=== PATIENT | female | born 1950 | race Hispanic/Latino ===

== ENCOUNTER 2017-08-13 21:12 | Emergency (ER) | payer OTHER ==
[~2017-08-13 21:12] MED LIST: AMLO10TA2 PO; ASCO10007 PO; ASPI-1197 PO; ATOR10TA69 PO; CALC-916 PO; CHOL100044 PO; L.AC1CAP6 PO; MAGN250T39 PO; MORINGA PO; OMEG100014 PO; PROP325C5 PO; TRAZ-144 PO
[2017-08-13 22:14] LABS: APPEARANCE,URINE Clear (CLEAR); BASOPHILS % (AUTO) 0.5 % (0.0-5.0); BILIRUBIN,URINE Negative (NEGATIVE); COLOR,URINE Yellow (YELLOW); EOSINOPHILS % (AUTO) 3.6 % (0.0-8.0); GLUCOSE, URINE (UA) Negative (NEGATIVE); HEMATOCRIT 38.3 % (36-48); KETONES,URINE Negative (NEGATIVE); LEUKOCYTE ESTERASE ,URINE Moderate (NEGATIVE); LYMPHOCYTES % (AUTO) 36.1 % (21.0-51.0); MEAN CORPUSCULAR HEMOGLOBIN 32.1 pg (27.0-33.0); MEAN CORPUSCULAR HGB CONC 34.8 g/dL (32.0-36.0); MEAN CORPUSCULAR VOLUME 92.4 fL (79-99); MONOCYTES % (AUTO) 9.7 % (3.0-13.0); NEUTROPHILS % (AUTO) 50.1 % (40.0-77.0); NITRATE,URINE Negative (NEGATIVE); NUCLEATED RED BLOOD CELLS 0.1 % (0.0-0.19); OCCULT BLOOD,URINE Negative (NEGATIVE); PH,URINE 6.5 (5.0-8.0); PLATELET COUNT (AUTO) 260 K/uL (130-400); PROTEIN,URINE Negative (NEGATIVE); RED BLOOD CELL COUNT(AUTO) 4.15 MIL/uL (4.00-5.50); RED CELL DISTRIBUTION WIDTH 13.1 % (11.0-15.5); UROBILINOGEN,URINE 0.2 mg/dL (0.2-1.0); WHITE BLOOD COUNT (AUTO) 5.4 K/uL (4.8-10.8)
[2017-08-13 22:29] LABS: CREATININE 1.1 mg/dL (0.5-1.5); POTASSIUM 3.7 mmol/L (3.5-5.1)
[2017-08-13 22:42] LABS: ALBUMIN 3.6 g/dL (3.5-5.0); BILIRUBIN,TOTAL 0.6 mg/dL (0.2-1.0); CREATINE KINASE MB 0.8 ng/mL (0.5-3.6); TOTAL PROTEIN, SERUM 6.9 g/dL (6.0-8.3)
[2017-08-13 22:46] LABS: INR 1.02 (0.85-1.15); PARTIAL THROMBOPLASTIN TIME 28.7 SEC (26.3-35.5); PROTHROMBIN TIME 10.7 SEC (9.6-11.6); RBC,URINE 0-1 /HPF (0-1)
[2017-08-13 22:47] LABS: BACTERIA,URINE Rare /HPF (None Seen); SQUAMOUS EPITHELIAL CELL,UR 0-2 /LPF (0-2)
== END 2017-08-13 23:54 | disposition home or self-care (01) ==
LOC: EDH 21:12
DX: R07.89 Other chest pain (principal); I10 Essential (primary) hypertension; R11.0 Nausea; Z88.1 Allergy status to other antibiotic agents; Z88.6 Allergy status to analgesic agent; Z87.891 Personal history of nicotine dependence
CPT/HCPCS: 36415; 71045; 80053; 81001; 82550; 82553; 84484; 85025; 85610; 85730; 93005

== ENCOUNTER → 2018-08-29 | Outpatient (CLI) | payer OTHER ==
[~2018-08-29] MED LIST changes: -AMLO10TA2 PO; +AMLO10TA7 PO; -TRAZ-144 PO; +TRAZ-185 PO
== END | disposition home or self-care (01) ==
LOC: RAH 12:55
PROVIDERS: ATTEND Internal Medicine Cardiovascular Disease
DX: Z13.6 Encounter for screening for cardiovascular disorders (principal)
CPT/HCPCS: 75571

== ENCOUNTER 2025-02-04 02:47 | Observation (INO) | payer MEDICARE, OTHER ==
[2025-02-04] VITALS (7 sets, daily range): BP systolic 110–143; BP diastolic 60–78; PULSE 69–98; RESP 15–18; TEMP 97.7–98.2; O2SAT 96–98
[~2025-02-04] VITALS: Ht 167.6 cm; Wt 74.4 kg
[~2025-02-04 02:47] MED LIST changes: +AMLO-258 PO; -AMLO10TA7 PO; +ASCO10004 PO; -ASCO10007 PO; +PROP325C17 PO; -PROP325C5 PO
[2025-02-04 03:13] LABS: IMMATURE GRANULOCYTE ABSOLUTE 0.01 K/uL (0-1); NUCLEATED RED BLOOD CELLS 0.0 % (0.0-0.19); PLATELET COUNT (AUTO) 290 K/uL (130-400); RED BLOOD CELL COUNT(AUTO) 4.68 MIL/uL (4.00-5.50); RED CELL DISTRIBUTION WIDTH 13.1 % (11.0-15.5); WHITE BLOOD COUNT (AUTO) 6.1 K/uL (4.8-10.8)
--- NOTE | 2025-02-04 03:21 | HMCIMG ---
EXAM: CR Chest, 1 view CLINICAL HISTORY: Palpitation. COMPARISON: Chest radiograph dated 08/13/2017. FINDINGS: The lungs show no infiltrates or other acute findings. No pleural effusion or pneumothorax. The cardiomediastinal silhouette is within normal limits. No acute osseous abnormality. Mild levoscoliosis of the thoracic spine. IMPRESSION: No acute cardiopulmonary process is evident. No interval changes. /[place]
[2025-02-04 03:22] LABS: CREATININE 0.9 mg/dL (0.5-1.0); GLOMERULAR FILTR. RATE CALC 68.0 mL/min (>90); GLUCOSE,RANDOM 103.0 mg/dL (70-105); SODIUM SERUM 141.0 mmol/L (136-145); UREA NITROGEN, BLOOD 12.0 mg/dL (7-18)
--- NOTE | 2025-02-04 04:12 | ERN ---
General Chief Complaint: Palpitations Stated Complaint: C/O PALPITATIONS Time Seen by MD: 03:12 History of Present Illness Initial Comments 74-year-old female with a history of atrial fibrillation on propafenone and blood thinners. She has been experiencing increased palpitations for the last 18 hours and comes into the emergency room. No chest pain no fevers no chills no other systemic symptoms. Normal bowel movements normal urine Allergies: Coded Allergies: Sulfa (Sulfonamide Antibiotics) (Unverified Allergy, Mild, 04/18/16) trimethoprim (Unverified Allergy, Mild, 04/18/16) Home Meds Reported Medications Propafenone HCl (Propafenone HCl) 325 Mg Cap.er.12h, 325 MG PO BID, CAPSULE.DR 04/18/16 Amlodipine Besylate (Amlodipine Besylate) 10 Mg Tablet, 10 MG PO DAILY, TAB 04/18/16 Atorvastatin Calcium (Atorvastatin Calcium) 10 Mg Tablet, 10 MG PO HS, TAB 04/18/16 Aspirin (Aspirin) 81 Mg Tab.chew, 81 MG PO DAILY, TAB.CHEW 04/18/16 Magnesium Oxide (Magnesium Oxide) 250 Mg Tablet, 150 MG PO BID, TAB 04/18/16 Calcium Carbonate (Calcium Carbonate) 600 Mg Tablet, 300 MG PO BID, TAB 04/18/16 Cholecalciferol (Vitamin D3) (Vitamin D) 1,000 Unit Tablet, 1000 UNIT PO BID, TAB 04/18/16 Ascorbic Acid (Vitamin C) 1,000 Mg Tablet, 1000 MG PO DAILY, TAB 04/18/16 Rupert-3 Fatty Acids (Rupert-3) 1,000 Mg Capsule, 300 MG PO QODAY, CAP 04/18/16 L.acidoph & Paracasei,B.lactis (Probiotic) 1 Each Capsule, 1 EACH PO BID, CAP 04/18/16 [[place]] No Conflict Check, 5000 MG PO DAILY 04/18/16 Trazodone HCl (Trazodone HCl) 50 Mg Tablet, 25 MG PO HS, TAB 04/18/16 Past Medical History Past Medical History: A-Fib, High Cholesterol, Hypertension Past Surgical History: Other Surgical History Other: HERNIA REPAIR Constitutional: (-) chills, (-) diaphoresis, (-) fever, (-) malaise, (-) weakness, (-) other documentation EENTM: (-) eye pain, (-) blurred vision, (-) tearing, (-) double vision, (-) ear pain, (-) ear discharge, (-) nose pain, (-) nose congestion, (-) throat pain, (-) Throat swelling, (-) mouth pain, (-) tooth pain, (-) mouth swelling, (-) other documentation Respiratory: (-) cough, (-) orthopnea, (-) short of breath, (-) stridor, (-) wheezing, (-) other documentation Cardiovascular: (-) chest pain, (-) edema, (-) palpitations, (-) syncope, (-) dyspnea on exertion, (-) other documentation Gastrointestinal/Abdominal: (-) nausea, (-) vomiting, (-) diarrhea, (-) abdominal pain, (-) abdominal distention, (-) constipation, (-) rectal bleeding, (-) dark stool/melena, (-) other documentation Genitourinary: (-) vaginal discharge, (-) vaginal bleeding, (-) dysuria, (-) frequency, (-) hematuria, (-) pain, (-) other documentation Musculoskeletal: (-) Neck pain, (-) back pain, (-) Flank Pain, (-) joint pain, (-) joint swelling, (-) muscle pain, (-) muscle stiffness, (-) gout, (-) other documentation Physical Exam General Appearance: (+) mild distress Orientation: (+) alert, (+) oriented x 3 Head/Face Trauma: No Eye: bilateral eye normal inspection, bilateral eye PERRL, bilateral eye EOMI Ear, Nose, Throat: (+) hearing grossly normal, (+) normal ENT inspection, (+) moist mucous membraine Neck: (+) normal inspection, (+) supple, (+) full range of motion Respiratory: (+) chest non-tender, (+) lungs clear, (+) well ventilated Heart: (+) irregular, (+) tachycardia Vascular: (+) no edema, (+) normal peripheral pulse Gastrointestinal: (+) soft, (+) non-tender, (+) no organomegaly, (+) bowel sound present Results Laboratory and Microbiology Lab and Micro Result Laboratory Tests Test 02/04/25 03:07 02/04/25 04:49 White Blood Count 6.1 K/uL (4.8-10.8) Red Blood Count 4.68 MIL/uL (4.00-5.50) Hemoglobin 14.6 g/dL (12.0-16.0) Hematocrit 44.5 % (36-48) Mean Corpuscular Volume 95.1 fL (79-99) Mean Corpuscular Hemoglobin 31.2 pg (27.0-33.0) Mean Corpuscular Hemoglobin Concent 32.8 g/dL (32.0-36.0) Red Cell Distribution Width 13.1 % (11.0-15.5) Platelet Count 290 K/uL (130-400) Mean Platelet Volume 9.0 fL (7.5-10.5) Immature Granulocyte % (Auto) 0.2 % (0-1) Neutrophils (%) (Auto) 47.9 % (40.0-77.0) Lymphocytes (%) (Auto) 38.5 % (21.0-51.0) Monocytes (%) (Auto) 9.1 % (3.0-13.0) Eosinophils (%) (Auto) 3.8 % (0.0-8.0) Basophils (%) (Auto) 0.5 % (0.0-5.0) Neutrophils # (Auto) 2.9 K/uL (1.8-7.7) Lymphocytes # (Auto) 2.3 K/uL (1.0-4.8) Monocytes # (Auto) 0.6 K/uL (0.1-1.0) Eosinophils # (Auto) 0.23 K/uL (0.00-0.70) Basophils # (Auto) 0.03 K/uL (0.00-0.20) Absolute Immature Granulocyte (auto 0.01 K/uL (0-1) Nucleated Red Blood Cells 0.0 % (0.0-0.19) Sodium Level 141 mmol/L (136-145) Potassium Level 4.3 mmol/L (3.5-5.1) Chloride Level 105 mmol/L (101-111) Carbon Dioxide Level 34 mmol/L (21-32) H Blood Urea Nitrogen 12 mg/dL (7-18) Creatinine 0.9 mg/dL (0.5-1.0) Glomerular Filtration Rate Calc 68 mL/min (>90) Random Glucose 103 mg/dL (70-105) Total Calcium 9.5 mg/dL (8.5-10.1) Magnesium Level 2.10 mg/dL (1.80-2.40) Troponin I High Sensitivity 5 ng/L (4-50) B-Type Natriuretic Peptide 40 pg/mL (0-100) Urine Color COLORLESS (YELLOW) Urine Appearance CLEAR (CLEAR) Urine pH 7.5 (5.0-8.0) Urine Specific [place] 1.006 (1.001-1.031) Urine Protein NEGATIVE mg/dL (NEGATIVE) Urine Glucose (UA) NEGATIVE mg/dL (NEGATIVE) Urine Ketones NEGATIVE mg/dL (NEGATIVE) Urine Occult Blood NEGATIVE (NEGATIVE) Urine Nitrate NEGATIVE (NEGATIVE) Urine Bilirubin NEGATIVE mg/dL (NEGATIVE) Urine Urobilinogen 0.2 mg/dL (0.2-1.0) Urine Leukocyte Esterase 25 [place]/uL (NEGATIVE) H Urine RBC 2-5 /HPF (0-1) H Urine WBC 6-10 /HPF (0-1) H Urine Squamous Epithelial Cells RARE /HPF (0-2) Urine Bacteria None /HPF (None Seen) MDM MDM: Differential diagnosis: Electrolyte abnormalities, fluid overload, pain, medication failure, infection, pneumothorax, PE, Rationale: Tests considered and ordered secondary to shared decision making include: Previous outside records reviewed: Old ER visits. Risk of complication and/or morbidity or mortality of patient management: None Medications-Per medication reconciliation Need for hospitalization: Patient does meet criteria for hospitalization. Need for emergency major/minor surgery: No There are no social concerns with this patient. Prescription drug management Prescriptions will include symptomatic care Patient's prior external medical records from other ER visits were reviewed by me as indicated. Prior testing and results from previous visits were reviewed. Prior tests were taken into account with medical decision making and resource utilization, independent historian/historians were used to obtain complete medical history. I independently interpreted the test that were performed, results were reviewed by me and considered findings on radiology if ordered. Patient's heart rate has come down to normal with dose of diltiazem. Her chemistry panel is normal her CBC is normal she does have a mild UTI. I will discharge her home with a three day supply of antibiotics. ED Course Orders Procedure Category Date Status Time Cbc With Differential LAB 02/04/25 Complete 02:57 Basic Metabolic Panel LAB 02/04/25 Complete 02:57 Magnesium LAB 02/04/25 Complete 02:57 Troponin I High LAB 02/04/25 Complete Sensitivity 02:57 Chest 1vw RAD 02/04/25 Resulted 02:57 12 Lead Ekg Tracing- EKG 02/04/25 Logged Technical 02:57 B-Type Natriuretic LAB 02/04/25 Complete Peptide 02:57 Urinalysis Profile LAB 02/04/25 Complete 03:33 Diltiazem 25mg Inj PHA 02/04/25 Complete (Cardizem 25mg Inj) 04:00 Culture Urine CHARY 02/04/25 In Process 05:07 Current Medications Medications (Trade) Dose Ordered Sig/Kemi Route PRN Reason Start Time Stop Time Status Last Admin Dose Admin Diltiazem HCl (CARDIzem 25MG INJ) 20 mg ONCE ONCE IVP 02/04/25 04:00 02/04/25 04:01 DC 02/04/25 04:16 Vital Signs Date Time Temp Pulse Resp B/P (MAP) Pulse Ox O2 Delivery O2 Flow Rate FiO2 02/04/25 05:10 78 18 97 Room Air* 0 02/04/25 04:36 84 18 118/51 98 Room Air* 0 02/04/25 04:23 84 18 118/51 98 Room Air* 0 02/04/25 04:16 118 127/79 02/04/25 03:09 98.4 122 18 148/72 98 Room Air* 0 02/04/25 02:48 96.3 68 20 136/63 99 Room Air DX & DISP Disposition: Discharge Departure Impression: Primary Impression: Atrial fibrillation with tachycardic ventricular rate Additional Impression: UTI (urinary tract infection) Condition: Stable Scripts Cephalexin Monohydrate (Keflex) 500 Mg Cap 500 MG PO QID for 3 Days, #12 CAP Prov: STACEY FUNG MD 02/04/25 Additional Instructions: We were able to slow her heart rate down with a single dose of diltiazem. 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 You do have a mild urinary tract infection I have given you an antibiotic to take for three days. Please return if your heart rate increases dramatically again. Referrals: DEANN RODRIGUEZ (PCP) STACEY FUNG MD Feb 04, 2025 04:12
[2025-02-04 05:04] LABS: APPEARANCE,URINE CLEAR (CLEAR); GLUCOSE, URINE (UA) NEGATIVE (NEGATIVE); LEUKOCYTE ESTERASE ,URINE 25 Leu/uL (NEGATIVE); NITRATE,URINE NEGATIVE (NEGATIVE); OCCULT BLOOD,URINE NEGATIVE (NEGATIVE)
[2025-02-04 05:05] LABS: ADD UA MICROSCOPIC YES
[2025-02-04 05:06] LABS: SQUAMOUS EPITHELIAL CELL,UR RARE /HPF (0-2)
[2025-02-04] MEDS ORDERED: CEPH500B PO (05:20)
[2025-02-04] MEDS ORDERED: DILT30 PO (06:11)
--- NOTE | 2025-02-04 06:53 | EKG ---
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
[2025-02-04] MEDS: 0.9% NACL 500ML IV.SOLN 500 ML IV ONE (07:01)
--- NOTE | 2025-02-04 08:04 | HP ---
[facility] HISTORY AND PHYSICAL Date of Service: Feb 04, 2025 Time of Service: 08:04 HISTORY OF PRESENT ILLNESS: Patient is a 74 year old female with a past medical history of atrial fibrillation, hypertension, dyslipidemia, and osteoporosis who presents to the ED for symptoms of palpitations, lower extremity weakness, and chest discomfort. Patient states these symptoms are similar to what she has experienced in the past when she was hospitalized for atrial fibrillation. Her last documented admission for a-fib was in September of 2011. Currently she is managed on propafenone SR 325mg BID and Xarelto 20mg daily at home. Patient denies any sh ortness of breath, fevers, chills, dizziness, or recent illness. She is under the care of agile coach Dr. Jiménez. Patient was given two pushes of diltiazem with the second resulting in hypotension with BP of 90/50's. Diltiazem is currently being held. Patient was given a bolus of normal saline. Home medication of Xarelto has been resumed for this evening, patient states her last dose was yesterday evening. On assessment patient was alert and oriented and in no acute distress. Patient is hemodynamically stable with blood pressure in the 130/90's and HR of 80. Chest x-ray unremarkable. Labs unremarkable other than positive for leukoesterase and WBC in urine. Started on nitrofurantoin for UTI due to several drug allergies. Lisinopril 5mg can be resumed if blood pressure increases. Patient was admitted under hospitalist care for further evaluation/recommendation. Cardiology has been consulted, we will follow up with recommendations. REVIEW OF SYSTEMS CONSTITUTIONAL: Denies fevers, chills, or night sweats. No unintentional weight loss reported. NEUROLOGICAL: Denies amaurosis fugax, sensory deficit, vertigo/spinning sensation, gait abnormalities, or tremors. Admits to headaches and leg weakness that has resolved. ENT: No hearing loss, otalgia, otorrhea, rhinitis, rhinorrhea, hoarseness, or sore throat. CARDIOVASCULAR: Denies any exertional angina, dyspnea on exertion, orthopnea, paroxysmal nocturnal dyspnea, palpitations, life-threatening arrhythmias, claudication. PULMONARY: Denies any shortness of breath, cough, phlegm/sputum, hemoptysis, pleuritic chest pain. SLEEP: Denies morning headaches, daytime somnolence or napping. Denies difficulty falling asleep, staying asleep, waking from sleep. Denies knowledge of snoring. GASTROINTESTINAL: Denies any type of dysphagia to either liquids or solids. Denies nausea, vomiting, pyrosis, early satiety, abdominal pain, diarrhea, constipation, or changes in stool consistency or caliber. Denies coffee-ground emesis, hematemesis, hematochezia, or melanotic stools. GENITOURINARY: Denies frequency, urgency, nocturia, hematuria or incontinence (Storage/Irritative symptoms.) Low urinary stream, straining to void, urinary intermittency or hesitancy, splitting of the voiding stream, terminal dribbling. ENDOCRINOLOGIC: Denies polyuria, polydipsia, polyphagia or heat/cold intolerances. HEMATOLOGIC: Denies thrombophilia/previous clots, or coagulopathy/bleeding disorders. ONCOLOGIC: Denies personal history of malignancy. DERMATOLOGIC: Denies rashes or pruritus. PSYCHIATRIC: Denies any suicidal or homicidal ideation. Denies hallucinations. PAST MEDICAL HISTORY: Atrial fibrillation, hypertension, dyslipidemia, osteoporosis PAST SURGICAL HISTORY: , Umbilical hernia repair, Right ovary and cyst, Orthoscopic surgery of lateral and medial meniscus of right knee, left elbow repair, peripheral ir idotomy of left and right eye, colonoscopy 2009, nondisplaced fracture of right tuberosity of humerus, incarcerated ventral hernia repair, forearm/wrist cyst removal PAST SOCIAL HISTORY: Denies any smoking, alcohol use, or illegal substance use FAMILY HISTORY: Father with history of A-fib and heart attack Mother passed young, unknown history Coded Allergies: ibuprofen (Unverified Allergy, Intermediate, 02/04/25) Abdominal cramps, profused sweating, back pain, dysuria methylprednisolone (Unverified Allergy, Intermediate, 02/04/25) Diaphoresis, muscle weakness, triggered Atrial fibrillation Sulfa (Sulfonamide Antibiotics) (Unverified Allergy, Mild, 04/18/16) cefdinir (Verified Allergy, Mild, 02/04/25) Abdominal cramping, back pain hydrochlorothiazide (Unverified Allergy, Mild, 02/04/25) [place] hyoscyamine (Verified Allergy, Mild, RASH, 02/04/25) methenamine (Verified Allergy, Mild, RASH, 02/04/25) methylene blue (Verified Allergy, Mild, RASH, 02/04/25) sodium phosphate (Verified Allergy, Mild, RASH, 02/04/25) trimethoprim (Unverified Allergy, Mild, 04/18/16) valsartan (Unverified Allergy, Mild, ITCH[place], 02/04/25) PHYSICAL EXAM GENERAL APPEARANCE: The patient is awake, alert, and oriented, in no acute cardiopulmonary distress. NEUROLOGICAL: Cranial nerves II-XII grossly intact. Motor is 5/5 in bilateral upper and lower extremities proximal to distal. No sensory deficits. HEENT: Face is symmetric. Pupils are equal and reactive. Extraocular movements are intact. NECK: Supple. No JVD. No thyromegaly. No submental, submandibular, pre- /postauricular, occipital or supraclavicular lymphadenopathy. CHEST: Normal chest expansion. No Telemetry. LUNGS: Absence of any rales, rhonchi or any wheezing. CARDIOVASCULAR: Regular. S1 and S2 normal. No appreciable rubs, murmurs or gallops. ABDOMEN: Soft, nontender, and nondistended. There is no rebound, voluntary guarding, or rigidity. : Deferred. No [place]oya. EXTREMITIES: Non-edematous and not cyanotic. No clubbing. Good capillary refill. SKIN: No skin breakdown. Vital Sign (Last 24 Hours) 02/04/25 02/04/25 02/04/25 06:06 06:55 07:16 Temp 98.2 Pulse 90 Resp 18 B/P (MAP) 106/55 Pulse Ox 98 O2 Delivery Room Air* O2 Flow Rate 0 FiO2 21 LABS: Laboratory: Test 02/04/25 04:49 02/04/25 03:07 Range/Units Urine Color COLORLESS YELLOW Urine Appearance CLEAR CLEAR Urine pH 7.5 5.0-8.0 Urine Specific [place] 1.006 1.001-1.031 Urine Protein NEGATIVE NEGATIVE mg/dL Urine Glucose (UA) NEGATIVE NEGATIVE mg/dL Urine Ketones NEGATIVE NEGATIVE mg/dL Urine Occult Blood NEGATIVE NEGATIVE Urine Nitrate NEGATIVE NEGATIVE Urine Bilirubin NEGATIVE NEGATIVE mg/dL Urine Urobilinogen 0.2 0.2-1.0 mg/dL Urine Leukocyte Esterase 25 H NEGATIVE [place]/uL Urine RBC 2-5 H 0-1 /HPF Urine WBC 6-10 H 0-1 /HPF Urine Squamous Epithelial Cells RARE 0-2 /HPF Urine Bacteria None None Seen /HPF White Blood Count 6.1 4.8-10.8 K/uL Red Blood Count 4.68 4.00-5.50 MIL/uL Hemoglobin 14.6 12.0-16.0 g/dL Hematocrit 44.5 36-48 % Mean Corpuscular Volume 95.1 79-99 fL Mean Corpuscular Hemoglobin 31.2 27.0-33.0 pg Mean Corpuscular Hemoglobin Concent 32.8 32.0-36.0 g/dL Red Cell Distribution Width 13.1 11.0-15.5 % Platelet Count 290 130-400 K/uL Mean Platelet Volume 9.0 7.5-10.5 fL Immature Granulocyte % (Auto) 0.2 0-1 % Neutrophils (%) (Auto) 47.9 40.0-77.0 % Lymphocytes (%) (Auto) 38.5 21.0-51.0 % Monocytes (%) (Auto) 9.1 3.0-13.0 % Eosinophils (%) (Auto) 3.8 0.0-8.0 % Basophils (%) (Auto) 0.5 0.0-5.0 % Neutrophils # (Auto) 2.9 1.8-7.7 K/uL Lymphocytes # (Auto) 2.3 1.0-4.8 K/uL Monocytes # (Auto) 0.6 0.1-1.0 K/uL Eosinophils # (Auto) 0.23 0.00-0.70 K/uL Basophils # (Auto) 0.03 0.00-0.20 K/uL Absolute Immature Granulocyte (auto 0.01 0-1 K/uL Nucleated Red Blood Cells 0.0 0.0-0.19 % Sodium Level 141 136-145 mmol/L Potassium Level 4.3 3.5-5.1 mmol/L Chloride Level 105 101-111 mmol/L Carbon Dioxide Level 34 H 21-32 mmol/L Blood Urea Nitrogen 12 7-18 mg/dL Creatinine 0.9 0.5-1.0 mg/dL Glomerular Filtration Rate Calc 68 >90 mL/min Random Glucose 103 70-105 mg/dL Total Calcium 9.5 8.5-10.1 mg/dL Magnesium Level 2.10 1.80-2.40 mg/dL Troponin I High Sensitivity 5 4-50 ng/L B-Type Natriuretic Peptide 40 0-100 pg/mL Current Medications Medications (Trade) Dose Ordered Sig/Kemi Route PRN Reason Start Time Stop Time Status Last Admin Dose Admin Ascorbic Acid (Vitamin C 500mg Tab) 1,000 mg DAILY PO 02/04/25 09:00 03/06/25 08:59 Atorvastatin Calcium (LIPItor 10MG) 10 mg HS PO 02/04/25 21:00 03/06/25 20:59 Cephalexin (Keflex 500 MG CAPS) 500 mg QID PO 02/04/25 09:00 02/04/25 07:58 DC Home Med (Home Medication) (Cholecalciferol (Vitamin D3) (Vitamin... BID PO 02/04/25 09:00 03/06/25 08:59 Home Med (Home Medication) (L.acidoph & Paracasei,B.lactis (Probiotic... BID PO 02/04/25 09:00 03/06/25 08:59 DIAGNOSTICS / RADIOLOGY: PATIENT: NACHO SOTELO MR#: [id number] : 1950 SEX: F AGE: 74 LOCATION: [facility] ORDER 7 STATUS: [facility] REPORT#: [id number] SERVICE 6 REASON: PALPITATIONS ORDERING PHYSICIAN: STACEY FUNG MD PROCEDURE: CXR1VW - CHEST 1VW EXAM: CR Chest, 1 view CLINICAL HISTORY: Palpitation. COMPARISON: Chest radiograph dated 08/13/2017. FINDINGS: The lungs show no infiltrates or other acute findings. No pleural effusion or pneumothorax. The cardiomediastinal silhouette is within normal limits. No acute osseous abnormality. Mild levoscoliosis of the thoracic spine. IMPRESSION: No acute cardiopulmonary process is evident. No interval changes. /[place] DICTATED BY: MATTHEW ALFREDO Jr., MD DATE: 02/04/25419 ELECTRONICALLY SIGNED BY: MATTHEW ALFREDO Jr., MD DATE: 02/04/25419 ASSESSMENT: Atrial fibrillation POA Urinary tract infection POA Hypertension Dyslipidemia Osteoporosis PLAN: Atrial fibrillation POA Hypertension Admit to med surg with tele Continue Xarelto 20mg HS daily Diltiazem 25mg held due to hypotensive episode, resume as needed Diltazem 5mg IV PRN if HR >120 Lisinopril held due to hypotensive episode, resume as needed Cardiology consult placed, pending recommendations Urinary tract infection POA Follow cultures, deescalate antibiotics as soon as possible Rocephin 1g IV discontinued due to patient reported allergy Started on nitrofurantoin 100mg BID daily Dyslipidemia, Osteoporosis Continue atorvastatin Continue alendronate Continue GI and DVT prophylaxis Maintain fall precautions Reconcile home medications when available ATTESTATION BY PHYSICIAN I have seen and examined the patient. I reviewed the documentation, medical decision making, and treatment plan as noted by the resident provider above. I agree with the findings and plan of care. Robin Interiano MD, NEHA MD Feb 04, 2025 08:04
[2025-02-04] MEDS: ASCORBIC ACID 500 MG TAB PO SCH (08:50)
[2025-02-04] MEDS ORDERED: RIVA20TA PO (09:17)
[2025-02-04] MEDS ORDERED: LISI5TAB21 PO (09:17)
[2025-02-04] MEDS ORDERED: ALEN70TA80 PO (09:17)
--- NOTE | 2025-02-04 09:48 | NUR ---
REPORT GIVEN TO NURSE WILLIS.
--- NOTE | 2025-02-04 09:53 | NUR ---
PATIENT TRANSPORTED TO THIRD FLOOR. ROOM 327. PATIENT TOOK ALL BELONGINGS WITH HER AT BEDSIDE.
[2025-02-04] MEDS: CHOLECALCIFEROL 1000 UNIT PO SCH (10:05)
[2025-02-04] MEDS: (L.acidoph & Paracasei,B.lactis (Probiotic) 1 EACH) PO SCH (10:05)
[2025-02-04] MEDS ORDERED: FAMOTIDINE 20MG VIAL IV PRN (11:00)
--- NOTE | 2025-02-04 11:09 | CONS ---
[facility] CARDIOLOGY CONSULTATION REPORT Cardiology consultation note dictated for Sana Proctor MD Primary reel film inspector: Igor Jiménez MD Date Patient Seen: Feb 04, 2025 Requesting Physician: Mary Sotelo MD Reason for Consultation: Atrial fibrillation with rapid ventricular response History of Present Illness: This is a 74 year female with a past medical history of hypertension, d yslipidemia, paroxysmal atrial fibrillation on chronic anticoagulation with Xarelto, 2D echo on 04/12/2010 with an EF of 65% with no significant valvular pathology, and nondiagnostic Cardiolite stress test with coronary calcium score of 47 in 2019 who presented to the ED with complaints of palpitations. She was found to have a UTI. Cardiology has been consulted for atrial fibrillation with rapid ventricular response. The patient woke up this morning around 2:00 a.m. to use the bathroom and noticed she had an irregular heartbeat and chest tightness which prompted her to seek medical attention. There were no other accompanying symptoms. EKG on admission demonstrated atrial fibrillation with a heart rate of 119 bpm. The patient received diltiazem 20 mg IV x2 inducing hypotension. She was given a 500cc NS bolus with improvement in blood pressure. She admits compliance with home medications of Propafenone ER 325 mg every 12 hours and Xarelto 20 mg daily with dinner. Current telemetry demonstrating atrial fibrillation with a heart rate of 110 bpm. Potassium 4.3. Magnesium 2.1. Troponin 5. BNP 40. Chest x- ray was benign. Past Medical History: As per HPI and summarized below Past Surgical History: C-sections x2 Right ovarian oophorectomy Umbilical hernia Right knee, lateral and medial meniscus repair Right arm cyst removal Family History: Noncontributory Social History: The patient lives with with her . Habits: The patient denies alcohol, tobacco, or illicit drug use. Home Meds: Alendronate sodium 70 mg weekly Propafenone paranoid 25 mg b.i.d. Lisinopril 5 mg daily Xarelto 20 mg daily with food Amlodipine 10 mg daily Ascorbic acid 1000 mg daily Aspirin 81 mg daily Atorvastatin 10 mg nightly Calcium carbonate 200 mg b.i.d. Vitamin-D 1000 units b.i.d. Probiotic b.i.d. Magnesium oxide 250 mg b.i.d. [place] 3 fatty acids 300 mg every other day Monitoring of 5000 mg daily Trazodone 25 mg q.h.s. Current Meds: Medications Dose Ordered Sig/Kemi Start Time Stop Time Status Last Admin Atorvastatin Calcium 10 mg HS 02/04/25 21:00 03/06/25 20:59 Ascorbic Acid 1,000 mg DAILY 02/04/25 09:00 03/06/25 08:59 02/04/25 08:50 Home Med (Cholecalciferol (Vitamin D3) (Vitamin... BID 02/04/25 09:00 03/06/25 08:59 Home Med (L.acidoph & Paracasei,B.lactis (Probiotic... BID 02/04/25 09:00 03/06/25 08:59 Rivaroxaban 20 mg HS 02/04/25 21:00 03/06/25 20:59 Nitrofurantoin Macrocrystals 100 mg BID 02/04/25 21:00 02/09/25 00:00 Lisinopril 5 mg DAILY 02/05/25 09:00 03/07/25 08:59 Alendronate Sodium 70 mg QWEEK@0630 02/11/25 06:30 03/13/25 06:29 Review of Systems: CONST: No fever, fatigue, or weight changes. EYES: No recent vision problems. ENT: No congestion, ear pain, or sore throat. C/V: Admits to an irregular heartbeat and chest tightness RESP: No cough, congestion, wheezing or shortness of breath. GI: No abdominal pain, nausea, vomiting, constipation, or diarrhea. : No incontinence or dysuria. SKIN: No rash. NEURO: No headache, focal numbness or weakness, dizziness, or seizures. PSYCH: No depression or anxiety. HEME: No abnormal bruising or bleeding. LYMPH: No swollen glands. Physical Examination: GENERAL: No acute distress. HEAD: Normal with no signs of head trauma. EYES: PERRLA, EOMI, conjunctiva and sclera normal. ENT: Hearing grossly intact, normal oropharynx. NECK: Supple without JVD. There is no tenderness, lymphadenopathy, or masses. No thyromegaly. Normal carotid upstrokes without bruits. LUNGS: Clear breath sounds bilaterally. No wheezes, or rhonchi. HEART: Irregularly irregular rate and rhythm. Normal S1 and S2 without murmurs, gallop or rub. VASC: Peripheral pulses +2 bilaterally. ABD: Bowel sounds normal, soft, nontender, no masses, no organomegaly. No audible bruits. : Not examined LYMPH: No lymphadenopathy noted. EXT: No clubbing, cyanosis or edema. SKIN: No rashes or lesions noted. NEURO: Awake, alert, and oriented x3. No focal sensory or strength deficits noted. Vital Signs (last 8hr) Date Time Temp Pulse Resp B/P (MAP) Pulse Ox O2 Delivery O2 Flow Rate FiO2 02/04/25 10:23 97.7 98 18 143/73 98 Room Air 02/04/25 09:54 97.9 92 17 133/66 98 Room Air 02/04/25 08:47 97.9 69 15 113/65 97 Room Air 02/04/25 07:16 90 106/55 02/04/25 06:55 78 18 92/58 98 Room Air* 0 02/04/25 06:42 72 18 92/64 96 Room Air* 0 02/04/25 06:06 98.2 90 18 102/63 99 Room Air* 0 02/04/25 05:10 78 18 97 Room Air* 0 02/04/25 04:36 84 18 118/51 98 Room Air* 0 02/04/25 04:23 84 18 118/51 98 Room Air* 0 02/04/25 04:16 118 127/79 02/04/25 03:09 98.4 122 18 148/72 98 Room Air* 0 21 Laboratory: Hematology Labs: Test 02/04/25 03:07 Range/Units White Blood Count 6.1 4.8-10.8 K/uL Red Blood Count 4.68 4.00-5.50 MIL/uL Hemoglobin 14.6 12.0-16.0 g/dL Hematocrit 44.5 36-48 % Mean Corpuscular Volume 95.1 79-99 fL Mean Corpuscular Hemoglobin 31.2 27.0-33.0 pg Mean Corpuscular Hemoglobin Concent 32.8 32.0-36.0 g/dL Red Cell Distribution Width 13.1 11.0-15.5 % Platelet Count 290 130-400 K/uL Mean Platelet Volume 9.0 7.5-10.5 fL Immature Granulocyte % (Auto) 0.2 0-1 % Neutrophils (%) (Auto) 47.9 40.0-77.0 % Lymphocytes (%) (Auto) 38.5 21.0-51.0 % Monocytes (%) (Auto) 9.1 3.0-13.0 % Eosinophils (%) (Auto) 3.8 0.0-8.0 % Basophils (%) (Auto) 0.5 0.0-5.0 % Neutrophils # (Auto) 2.9 1.8-7.7 K/uL Lymphocytes # (Auto) 2.3 1.0-4.8 K/uL Monocytes # (Auto) 0.6 0.1-1.0 K/uL Eosinophils # (Auto) 0.23 0.00-0.70 K/uL Basophils # (Auto) 0.03 0.00-0.20 K/uL Absolute Immature Granulocyte (auto 0.01 0-1 K/uL Nucleated Red Blood Cells 0.0 0.0-0.19 % Chemistry Labs: Test 02/04/25 03:07 Range/Units Sodium Level 141 136-145 mmol/L Potassium Level 4.3 3.5-5.1 mmol/L Chloride Level 105 101-111 mmol/L Carbon Dioxide Level 34 H 21-32 mmol/L Blood Urea Nitrogen 12 7-18 mg/dL Creatinine 0.9 0.5-1.0 mg/dL Glomerular Filtration Rate Calc 68 >90 mL/min Random Glucose 103 70-105 mg/dL Total Calcium 9.5 8.5-10.1 mg/dL Magnesium Level 2.10 1.80-2.40 mg/dL Troponin I High Sensitivity 5 4-50 ng/L B-Type Natriuretic Peptide 40 0-100 pg/mL Diagnostics / Radiology: Impression and Plan: Atrial fibrillation with rapid ventricular response UTI On chronic anticoagulation with Xarelto Hypertension Dyslipidemia Nondiagnostic Cardiolite stress test with coronary calcium score 47 in 2019 Atrial fibrillation with rapid ventricular response Telemetry currently demonstrating atrial fibrillation with a heart rate of 110bpm -Start metoprolol tartrate 25 mg b.i.d. -Continue Xarelto 20 mg daily with dinner and use home medication of Propafenone ER 325 mg every 12 hours JOSE ESCOBEDO [employer] Feb 04, 2025 11:09
[2025-02-04] MEDS: 0.9%NACL 1000ML 1,000 ML IV SCH (11:32)
[2025-02-04] MEDS: PROPAFENONE HCL 325 MG PO SCH (13:11)
[2025-02-04] MEDS ORDERED: PoTASSium chl 10% ELIXIR 20MEQ 20 MEQ/15 ML UDCUP PO PRN (14:00)
[2025-02-04] MEDS ORDERED: MAGNESIUM 2GM PREMIX 50ML 50 ML IV PRN (14:00)
[2025-02-04] MEDS ORDERED: PoTASSium chloRIDE 20MEQ ER 20 MEQ ERTAB PO PRN (14:00)
[2025-02-04] MEDS: FAMOTIDINE 20MG VIAL IV SCH (20:24)
[2025-02-04] MEDS: RIVAROXABAN 20 MG TABLET PO SCH (20:25)
[2025-02-04] MEDS: NITROFURANTOIN MONOHYD/M-CRYST 100 MG CAPSULE PO SCH (20:25)
[2025-02-05] VITALS: BP 118/76; PULSE 90; RESP 18; TEMP 97.4
[2025-02-05 04:00] VITALS: BP 113/67; PULSE 90; RESP 17; TEMP 97.6
[2025-02-05 04:30] LABS: IMMATURE GRANULOCYTE ABSOLUTE 0.01 K/uL (0-1); NUCLEATED RED BLOOD CELLS 0.0 % (0.0-0.19); PLATELET COUNT (AUTO) 248 K/uL (130-400); RED BLOOD CELL COUNT(AUTO) 4.12 MIL/uL (4.00-5.50); RED CELL DISTRIBUTION WIDTH 13.0 % (11.0-15.5); WHITE BLOOD COUNT (AUTO) 5.5 K/uL (4.8-10.8)
[2025-02-05 04:47] LABS: ASPARTATE AMINOTRANSFERASE 19.0 U/L (10-37); CREATININE 0.8 mg/dL (0.5-1.0); GLOMERULAR FILTR. RATE CALC 78.0 mL/min (>90); GLUCOSE,RANDOM 89.0 mg/dL (70-105); SODIUM SERUM 141.0 mmol/L (136-145); TOTAL PROTEIN, SERUM 5.9 g/dL (6.0-8.3); UREA NITROGEN, BLOOD 14.0 mg/dL (7-18)
[2025-02-05 08:00] VITALS: BP 126/79; PULSE 65; RESP 17; TEMP 97.5
[2025-02-05 08:50] VITALS: O2SAT 99
[2025-02-05] MEDS: LISINOPRIL 5 MG TABLET PO SCH (08:50)
--- NOTE | 2025-02-05 09:48 | NUR ---
DCP: HOME Pt currently lives with her sps Willian Tim [phone]. Pt does not have insecurities with food, care home, and/or utilities. Pt does use a walker outside her home. Pt does not have a provider or home health services at this time. PCP is Dr. Leighton Parker and uses [facility] for any RX needs. At [place] pt will want to go home and family can assist with transportation. Addendum: 02/05/25 at 0950 by CASEY BILLINGS SS Amended: Links added.
[2025-02-05 12:00] VITALS: BP 144/79; PULSE 64; RESP 18; TEMP 97.8
--- NOTE | 2025-02-05 12:20 | PN ---
[facility] CARDIOLOGY PROGRESS NOTE Cardiology progress note dictated for Kaushik Tinoco MD Date Patient Seen: Feb 05, 2025 Interval History: The patient converted to NSR, hr in the 60's now. Physical Examination: GENERAL: No acute distress. HEAD: Normal with no signs of head trauma. EYES: PERRLA, EOMI, conjunctiva and sclera normal. NECK: Supple without JVD. There is no tenderness, lymphadenopathy, or masses. No thyromegaly. Normal carotid upstrokes without bruits. LUNGS: Clear breath sounds bilaterally. No wheezes, or rhonchi. HEART: Normal rate and rhythm. Normal S1 and S2 without murmurs, gallop or rub. VASC: Peripheral pulses +2 bilaterally. EXT: No clubbing, cyanosis or edema. NEURO: Awake, alert, and oriented x3. No focal neurological deficits noted. Laboratory: Hematology Labs: Test 02/05/25 04:07 Range/Units White Blood Count 5.5 4.8-10.8 K/uL Red Blood Count 4.12 4.00-5.50 MIL/uL Hemoglobin 13.0 12.0-16.0 g/dL Hematocrit 39.4 36-48 % Mean Corpuscular Volume 95.6 79-99 fL Mean Corpuscular Hemoglobin 31.6 27.0-33.0 pg Mean Corpuscular Hemoglobin Concent 33.0 32.0-36.0 g/dL Red Cell Distribution Width 13.0 11.0-15.5 % Platelet Count 248 130-400 K/uL Mean Platelet Volume 9.1 7.5-10.5 fL Immature Granulocyte % (Auto) 0.2 0-1 % Neutrophils (%) (Auto) 42.2 40.0-77.0 % Lymphocytes (%) (Auto) 43.2 21.0-51.0 % Monocytes (%) (Auto) 9.1 3.0-13.0 % Eosinophils (%) (Auto) 4.4 0.0-8.0 % Basophils (%) (Auto) 0.9 0.0-5.0 % Neutrophils # (Auto) 2.3 1.8-7.7 K/uL Lymphocytes # (Auto) 2.4 1.0-4.8 K/uL Monocytes # (Auto) 0.5 0.1-1.0 K/uL Eosinophils # (Auto) 0.24 0.00-0.70 K/uL Basophils # (Auto) 0.05 0.00-0.20 K/uL Absolute Immature Granulocyte (auto 0.01 0-1 K/uL Nucleated Red Blood Cells 0.0 0.0-0.19 % Chemistry Labs: Test 02/05/25 04:07 02/04/25 03:07 Range/Units Sodium Level 141 136-145 mmol/L Potassium Level 4.0 3.5-5.1 mmol/L Chloride Level 107 101-111 mmol/L Carbon Dioxide Level 28 21-32 mmol/L Blood Urea Nitrogen 14 7-18 mg/dL Creatinine 0.8 0.5-1.0 mg/dL Glomerular Filtration Rate Calc 78 >90 mL/min Random Glucose 89 70-105 mg/dL Total Calcium 8.5 8.5-10.1 mg/dL Total Bilirubin 0.4 0.2-1.0 mg/dL Aspartate Amino Transf (AST/SGOT) 19 10-37 U/L Alanine Aminotransferase (ALT/SGPT) 19 12-78 U/L Alkaline Phosphatase 50 50-136 U/L Total Protein 5.9 L 6.0-8.3 g/dL Albumin 2.9 L 3.5-5.0 g/dL Thyroxine (T4) 8.4 4.7-13.3 ug/dL Magnesium Level 2.10 1.80-2.40 mg/dL Troponin I High Sensitivity 5 4-50 ng/L B-Type Natriuretic Peptide 40 0-100 pg/mL Thyroid Stimulating Hormone (TSH) 5.14 H 0.36-3.74 uIU/mL Diagnostics / Radiology: Impression and Plan: Atrial fibrillation with rapid ventricular response UTI On chronic anticoagulation with Xarelto Hypertension Dyslipidemia Nondiagnostic Cardiolite stress test with coronary calcium score 47 in 2019 Atrial fibrillation with rapid ventricular response Telemetry currently demonstrating normal sinus rhythm with a heart rate in the 60s -The patient is cleared for discharge on metoprolol tartrate 25 mg bid, propafenone ER 325 mg every 12 hours, and Xarelto 20 mg daily with dinner -Follow-up with Dr. Igor Jiménez in 7 to 10 days after discharge JOSE ESCOBEDO [facility] Feb 05, 2025 12:20
[2025-02-05] MEDS ORDERED: MACR100 PO (14:17)
[2025-02-05] MEDS ORDERED: METO25TA6 PO (14:17)
--- NOTE | 2025-02-05 15:27 | NUR ---
DISCHARGE PIV DC'D DISCHARGE INSTRUCTIONS GIVEN TO PATIENT PATIENT IS AWARE OF FOLLOW UP APPOINTMENT WITH [employer] [employer] PCP OFFICE TO CALL WITH FOLLOW UP APPOINTMENT PATIENT IS AWARE OF MEDICATION CHANGES AND NEW PRESCRIPTIONS PATIENTS HOME MEDICATIONS WERE RETURNED FROM THE [facility]MN[facility] TO THE PATIENT ALL QUESTIONS ANSWERED PRIOR TO DISCHARGE
--- NOTE | 2025-02-05 16:15 | DS ---
Discharge Summary Hospital Course Summary: Patient information: Name: Nacho Tim Date of : 1950 Admission date: 02/04/2025 Discharge date: 02/05/2025 Attending physician: Dr. Robin Interiano Admitting diagnosis: Atrial fibrillation POA Urinary tract infection POA Hypertension, POA Dyslipidemia, POA Osteoporosis, POA Discharge diagnosis: Atrial fibrillation POA Urinary tract infection POA Hypertension Dyslipidemia Osteoporosis Course in hospital: She is a 74-year-old female with past medical history of atrial fibrillation, hypertension, dyslipidemia, and osteoporosis presented to the ED for symptoms of palpitations. lower extremity weakness and chest discomfort. She states these symptoms are similar to what she has experienced in the past when she was hospitalized for atrial fibrillation. She was on propafenone SR 325mg BID and Xarelto 20mg daily at home. In the ED had a EKG showed that she is having atrial fibrillation with rapid ventricular response and her heart rate is 119 and she was given 2 pushes of diltiazem with the 2nd resulting in hypotension with BP of 90/50s. So diltiazem was held. She was given a bolus of normal saline. After these on assessment patient was alert and oriented and in no acute distress. Patient is hemodynamically stable with blood pressure in the 130/90's and HR of 80. Chest x-ray unremarkable. Labs unremarkable other than positive for leukoesterase and WBC in urine. Started on nitrofurantoin for UTI due to several drug allergies. She was admitted to the hospital for further management. Cardiology was consulted and the started metoprolol tartrate and continue Xarelto 20mg, propafenone ER 325 mg every 12 hours. On 02/05/2025, she has no symptoms and EKG showed that she is in sinus rhythm. She is cleared for cardiology for discharge and so we are discharging her based on cardiac recommendations on Xarelto 20mg, metoprolol tartrate 25mg, propafenone ER 325mg. Procedures performed: Chest x-ray Medications on discharge: 1) Metoprolol Tartrate 25mg 1 tab PO BID. 2) Nitrofurantoin 100mg 1 Cap PO BID 3) Alendronate 70mg 1 Tab PO QWEEK 4) Ascorbic acid 1000mg 1 tab PO daily 5) Aspirin 81mg tab. chew PO daily. 6)Atorvastatin 10mg PO HS 7) Calcium carbonate 600mg tab 300mg PO BID 8) Cholecalciferol 1000 unit 1 tab PO BID 9) L.acidoph and paracasei, B.lactis 1each PO BID 10) Lisinopril 5mg 1 tab PO Daily 11) Magnesium oxide 250mg 150 mg PO BID 12) Moringa 5000mg PO Daily 13) Sloan 3 fatty acids 1000mg 300mg PO QODAY 14) Propafenone 325mg ER 1 tab PO BID 15) Rivaroxaban 20mg 1 tab PO Daily 16) Trazodone 50mg 25mg PO HS. Discharge instructions: 1) Follow up with primary care physician within 2 to 3 days after discharge. 2) Follow up with cardiology in 7 to 10 days after discharge. 3) Continue all medications as prescribed. Do not discontinue or change doses without consulting your PCP. 4) Gradually resume normal activities as tolerated. 5) Continue a balanced diet. 6) Seek immediate medical attention if you experience chest pain, SOB, or severe headache. 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 [place] [id number] [facility] CARDIOLOGY CONSULTATION REPORT Cardiology consultation note dictated for Sana Proctor MD Primary engraver hand soft metals: Igor Jiménez MD Date Patient Seen: Feb 04, 2025 Requesting Physician: Mary Sotelo MD Reason for Consultation: Atrial fibrillation with rapid ventricular response History of Present Illness: This is a 74 year female with a past medical history of hypertension, dyslipidemia, paroxysmal atrial fibrillation on chronic anticoagulation with Xarelto, 2D echo on 04/12/2010 with an EF of 65% with no significant valvular pathology, and nondiagnostic Cardiolite stress test with coronary calcium score of 47 in 2019 who presented to the ED with complaints of palpitations. She was found to have a UTI. Cardiology has been consulted for atrial fibrillation with rapid ventricular response. The patient woke up this morning around 2:00 a.m. to use the bathroom and noticed she had an irregular heartbeat and chest tightness which prompted her to seek medical attention. There were no other accompanying symptoms. EKG on admission demonstrated atrial fibrillation with a heart rate of 119 bpm. The patient received diltiazem 20 mg IV x2 inducing hypotension. She was given a 500cc NS bolus with improvement in blood pressure. She admits compliance with home medications of Propafenone ER 325 mg every 12 hours and Xarelto 20 mg daily with dinner. Current telemetry demonstrating atrial fibrillation with a heart rate of 110 bpm. Potassium 4.3. Magnesium 2.1. Troponin 5. BNP 40. Chest x- ray was benign. Past Medical History: As per HPI and summarized below Past Surgical History: C-sections x2 Right ovarian oophorectomy Umbilical hernia Right knee, lateral and medial meniscus repair Right arm cyst removal Family History: Noncontributory Social History: The patient lives with with her . Habits: The patient denies alcohol, tobacco, or illicit drug use. Home Meds: Alendronate sodium 70 mg weekly Propafenone paranoid 25 mg b.i.d. Lisinopril 5 mg daily Xarelto 20 mg daily with food Amlodipine 10 mg daily Ascorbic acid 1000 mg daily Aspirin 81 mg daily Atorvastatin 10 mg nightly Calcium carbonate 200 mg b.i.d. Vitamin-D 1000 units b.i.d. Probiotic b.i.d. Magnesium oxide 250 mg b.i.d. Sloan 3 fatty acids 300 mg every other day Monitoring of 5000 mg daily Trazodone 25 mg q.h.s. Current Meds: Medications Dose Ordered Sig/Kemi Start Time Stop Time Status Last Admin Atorvastatin Calcium 10 mg HS 02/04/25 21:00 03/06/25 20:59 Ascorbic Acid 1,000 mg DAILY 02/04/25 09:00 03/06/25 08:59 02/04/25 08:50 Home Med (Cholecalciferol (Vitamin D3) (Vitamin... BID 02/04/25 09:00 03/06/25 08:59 Home Med (L.acidoph & Paracasei,B.lactis (Probiotic... BID 02/04/25 09:00 03/06/25 08:59 Rivaroxaban 20 mg HS 02/04/25 21:00 03/06/25 20:59 Nitrofurantoin Macrocrystals 100 mg BID 02/04/25 21:00 02/09/25 00:00 Lisinopril 5 mg DAILY 02/05/25 09:00 8/29/25 08:59 Alendronate Sodium 70 mg QWEEK@0630 02/11/25 06:30 03/13/25 06:29 Review of Systems: CONST: No fever, fatigue, or weight changes. EYES: No recent vision problems. ENT: No congestion, ear pain, or sore throat. C/V: Admits to an irregular heartbeat and chest tightness RESP: No cough, congestion, wheezing or shortness of breath. GI: No abdominal pain, nausea, vomiting, constipation, or diarrhea. : No incontinence or dysuria. SKIN: No rash. NEURO: No headache, focal numbness or weakness, dizziness, or seizures. PSYCH: No depression or anxiety. HEME: No abnormal bruising or bleeding. LYMPH: No swollen glands. Physical Examination: GENERAL: No acute distress. HEAD: Normal with no signs of head trauma. EYES: PERRLA, EOMI, conjunctiva and sclera normal. ENT: Hearing grossly intact, normal oropharynx. NECK: Supple without JVD. There is no tenderness, lymphadenopathy, or masses. No thyromegaly. Normal carotid upstrokes without bruits. LUNGS: Clear breath sounds bilaterally. No wheezes, or rhonchi. HEART: Irregularly irregular rate and rhythm. Normal S1 and S2 without murmurs, gallop or rub. VASC: Peripheral pulses +2 bilaterally. ABD: Bowel sounds normal, soft, nontender, no masses, no organomegaly. No audible bruits. : Not examined LYMPH: No lymphadenopathy noted. EXT: No clubbing, cyanosis or edema. SKIN: No rashes or lesions noted. NEURO: Awake, alert, and oriented x3. No focal sensory or strength deficits noted. Vital Signs (last 8hr) Date Time Temp Pulse Resp B/P (MAP) Pulse Ox O2 Delivery O2 Flow Rate FiO2 02/04/25 10:23 97.7 98 18 143/73 98 Room Air 02/04/25 09:54 97.9 92 17 133/66 98 Room Air 02/04/25 08:47 97.9 69 15 113/65 97 Room Air 02/04/25 07:16 90 106/55 02/04/25 06:55 78 18 92/58 98 Room Air* 0 21 02/04/25 06:42 72 18 92/64 96 Room Air* 0 21 29/25 06:06 98.2 90 18 102/63 99 Room Air* 0 02/04/25 05:10 78 18 97 Room Air* 0 02/04/25 04:36 84 18 118/51 98 Room Air* 0 02/04/25 04:23 84 18 118/51 98 Room Air* 0 02/04/25 04:16 118 127/79 02/04/25 03:09 98.4 122 18 148/72 98 Room Air* 0 21 Laboratory: Hematology Labs: Test 02/04/25 03:07 Range/Units White Blood Count 6.1 4.8-10.8 K/uL Red Blood Count 4.68 4.00-5.50 MIL/uL Hemoglobin 14.6 12.0-16.0 g/dL Hematocrit 44.5 36-48 % Mean Corpuscular Volume 95.1 79-99 fL Mean Corpuscular Hemoglobin 31.2 27.0-33.0 pg Mean Corpuscular Hemoglobin Concent 32.8 32.0-36.0 g/dL Red Cell Distribution Width 13.1 11.0-15.5 % Platelet Count 290 130-400 K/uL Mean Platelet Volume 9.0 7.5-10.5 fL Immature Granulocyte % (Auto) 0.2 0-1 % Neutrophils (%) (Auto) 47.9 40.0-77.0 % Lymphocytes (%) (Auto) 38.5 21.0-51.0 % Monocytes (%) (Auto) 9.1 3.0-13.0 % Eosinophils (%) (Auto) 3.8 0.0-8.0 % Basophils (%) (Auto) 0.5 0.0-5.0 % Neutrophils # (Auto) 2.9 1.8-7.7 K/uL Lymphocytes # (Auto) 2.3 1.0-4.8 K/uL Monocytes # (Auto) 0.6 0.1-1.0 K/uL Eosinophils # (Auto) 0.23 0.00-0.70 K/uL Basophils # (Auto) 0.03 0.00-0.20 K/uL Absolute Immature Granulocyte (auto 0.01 0-1 K/uL Nucleated Red Blood Cells 0.0 0.0-0.19 % Chemistry Labs: Test 02/04/25 03:07 Range/Units Sodium Level 141 136-145 mmol/L Potassium Level 4.3 3.5-5.1 mmol/L Chloride Level 105 101-111 mmol/L Carbon Dioxide Level 34 H 21-32 mmol/L Blood Urea Nitrogen 12 7-18 mg/dL Creatinine 0.9 0.5-1.0 mg/dL Glomerular Filtration Rate Calc 68 >90 mL/min Random Glucose 103 70-105 mg/dL Total Calcium 9.5 8.5-10.1 mg/dL Magnesium Level 2.10 1.80-2.40 mg/dL Troponin I High Sensitivity 5 4-50 ng/L B-Type Natriuretic Peptide 40 0-100 pg/mL Diagnostics / Radiology: Impression and Plan: Atrial fibrillation with rapid ventricular response UTI On chronic anticoagulation with Xarelto Hypertension Dyslipidemia Nondiagnostic Cardiolite stress test with coronary calcium score 47 in 2018 Atrial fibrillation with rapid ventricular response Telemetry currently demonstrating atrial fibrillation with a heart rate of 110bpm -Start metoprolol tartrate 25 mg b.i.d. -Continue Xarelto 20 mg daily with dinner and use home medication of Propafenone ER 325 mg every 12 hours JOSE ESCOBEDO [facility] Feb 04, 2025 11:09 Electronically Signed by: JOSE ESCOBEDO [facility]02/04/25 1158 Electronically Co-Signed by: Procedure(s): [place] [id number] [address] IMAGING REPORT Signed PATIENT: NACHO TIM MR#: [id number] : 1950 SEX: F AGE: 74 LOCATION: [facility] ORDER 7 STATUS: REG ER REPORT#: [id number] SERVICE 6 REASON: PALPITATIONS ORDERING PHYSICIAN: STACEY FUNG MD PROCEDURE: CXR1VW - CHEST 1VW EXAM: CR Chest, 1 view CLINICAL HISTORY: Palpitation. COMPARISON: Chest radiograph dated 08/13/2017. FINDINGS: The lungs show no infiltrates or other acute findings. No pleural effusion or pneumothorax. The cardiomediastinal silhouette is within normal limits. No acute osseous abnormality. Mild levoscoliosis of the thoracic spine. IMPRESSION: No acute cardiopulmonary process is evident. No interval changes. /[place] DICTATED BY: MATTHEW ALFREDO Jr., MD DATE: 02/04/25419 ELECTRONICALLY SIGNED BY: MATTHEW ALFREDO Jr., MD DATE: 02/04/25419 Assessment/Plan: ASSESSMENT: Atrial fibrillation POA Urinary tract infection POA Hypertension Dyslipidemia Osteoporosis PLAN: Atrial fibrillation POA Today her EKG showed that she is in sinus rhythm. Cardiology saw and her and they recommended to start metoprolol 25mg, continue Xarelto 20mg and propafenone ER 325mg. Hypertension Today her blood pressure is 144/79. Cardiology saw and her and they recommended to start metoprolol 25mg, continue Xarelto 20mg and propafenone ER 325mg. Urinary tract infection POA Urine cultures showed mixed emmie contamination. Continue nitrofurantoin 100mg. Dyslipidemia Continue atorvastatin 10mg Osteoporosis Continue alendronate 70mg Discharge Instructions: 1) Follow up with primary care physician within 2 to 3 days after discharge. 2) Follow up with cardiology in 7 to 10 days after discharge. 3) Continue all medications as prescribed. Do not discontinue or change doses without consulting your PCP. 4) Gradually resume normal activities as tolerated. 5) Continue a balanced diet. 6) Seek immediate medical attention if you experience chest pain, SOB, or severe headache. Home Medications: Active Scripts Nitrofurantoin/Nitrofuran Mac (Macrobid) 100 Mg Cap, 1 CAP PO BID for 5 Days, #10 CAP 0 Refills Prov:SUNDAR HEAD 02/05/25 Metoprolol Tartrate (Metoprolol Tartrate) 25 Mg Tablet, 1 TAB PO BID for 30 Days, #60 TAB 0 Refills Prov:SUNDAR HEAD 02/05/25 Reported Medications Lisinopril (Lisinopril) 5 Mg Tablet, 1 TAB PO DAILY for 30 Days, #30 TAB 0 Refills 02/04/25 Alendronate Sodium (Alendronate Sodium) 70 Mg Tablet, 1 TAB PO QWEEK for 28 Days, #4 TAB 0 Refills in the morning, at least 30 minutes before the first food, beverage, or medication of the day 02/04/25 Rivaroxaban (Xarelto) 20 Mg Tablet, 1 TAB PO DAILY for 30 Days, #30 TAB 0 Refills with food 02/04/25 Propafenone HCl (Propafenone HCl) 325 Mg Cap.er.12h, 325 MG PO BID, CAPSULE.DR 04/18/16 Atorvastatin Calcium (Atorvastatin Calcium) 10 Mg Tablet, 10 MG PO HS, TAB 04/18/16 Aspirin (Aspirin) 81 Mg Tab.chew, 81 MG PO DAILY, TAB.CHEW 04/18/16 Magnesium Oxide (Magnesium Oxide) 250 Mg Tablet, 150 MG PO BID, TAB 04/18/16 Calcium Carbonate (Calcium Carbonate) 600 Mg Tablet, 300 MG PO BID, TAB 04/18/16 Cholecalciferol (Vitamin D3) (Vitamin D) 1,000 Unit Tablet, 1000 UNIT PO BID, TAB 04/18/16 Ascorbic Acid (Vitamin C) 1,000 Mg Tablet, 1000 MG PO DAILY, TAB 04/18/16 Sloan-3 Fatty Acids (Sloan-3) 1,000 Mg Capsule, 300 MG PO QODAY, CAP 04/18/16 L.acidoph & Paracasei,B.lactis (Probiotic) 1 Each Capsule, 1 EACH PO BID, CAP 04/18/16 [Moringa] No Conflict Check, 5000 MG PO DAILY 04/18/16 Trazodone HCl (Trazodone HCl) 50 Mg Tablet, 25 MG PO HS, TAB 04/18/16 Discontinued Reported Medications Amlodipine Besylate (Amlodipine Besylate) 10 Mg Tablet, 10 MG PO DAILY, TAB 04/18/16 Discontinued Scripts Diltiazem HCl (Diltiazem HCl 30 mg Tab) 30 Mg Tab, 1 TAB PO BID for 30 Days, #60 TAB 0 Refills Prov:STACEY FUNG MD 02/04/25 Cephalexin Monohydrate (Keflex) 500 Mg Cap, 500 MG PO QID for 3 Days, #12 CAP Prov:STACEY FUNG MD 02/04/25 Time spent arranging discharge: 1-30 minutes ATTESTATION BY PHYSICIAN I have seen and examined the patient. I reviewed the documentation, medical decision making, and treatment plan as noted by the resident provider above. I agree with the findings and plan of care. Robin Interiano MD, AKSHAY MD Feb 05, 2025 16:15
[2025-02-11] MEDS ORDERED: ALENDRONATE SODIUM 35 MG TAB PO SCH (06:30)
== END 2025-02-05 15:50 | disposition home or self-care (01) ==
LOC: EDH 02:47 → INTOOBSV 07:42 → UNDOADMOB 07:42 → EDHIP 07:42 → 3DH 10:00
PROVIDERS: ADMIT Internal Medicine; ATTEND Internal Medicine
DX: I48.0 Paroxysmal atrial fibrillation (principal); N39.0 Urinary tract infection, site not specified; I10 Essential (primary) hypertension; E78.5 Hyperlipidemia, unspecified; R00.2 Palpitations; R07.89 Other chest pain; E78.00 Pure hypercholesterolemia, unspecified; Z79.82 Long term (current) use of aspirin; Z79.899 Other long term (current) drug therapy; Z98.890 Other specified postprocedural states
CPT/HCPCS: 96376 ×2; 96361 ×4; 96365; 96375; 99285; 84443; 83735; 84484; 80048; 83880; 85025 ×2; 87086; 81001; 36415 ×2; 71045; 93005; 84436; 80053; 84480; J7040; J3490 ×4; J7030 ×2; J0696; G0378 ×7; 96374; J1308

== ENCOUNTER → 2025-04-24 | Outpatient (CLI) | payer OTHER ==
[~2025-04-24] MED LIST changes: +ALEN70TA80 PO; -AMLO-258 PO; +LISI5TAB21 PO; +MACR100 PO; +METO25TA6 PO; +RIVA20TA PO
== END | disposition home or self-care (01) ==
LOC: RAH 10:21
PROVIDERS: ATTEND Internal Medicine Cardiovascular Disease
DX: Z13.6 Encounter for screening for cardiovascular disorders (principal)
CPT/HCPCS: 75571